=== PATIENT | female | born 1960 | race Caucasian/White ===

== ENCOUNTER 2017-05-28 23:58 | Emergency (ER) | payer OTHER ==
[~2017-05-28] VITALS: Ht 149.9 cm; Wt 67.5 kg
[2017-05-29 00:02] VITALS: Ht 149.9 cm; Wt 67.5 kg
[2017-05-29] MEDS ORDERED: METHYLPREDNISOLONE 125 MG INJ IV STA (01:01)
[2017-05-29] MEDS ORDERED: DIPHENHYDRAMINE 50 MG INJ IV STA (01:01)
[2017-05-29] MEDS ORDERED: FAMOTIDINE 20 MG INJ IV STA (01:01)
[2017-05-29] MEDS ORDERED: PRED20TA PO (02:01)
--- NOTE | 2017-05-29 02:08 | ERD ---
ER Documentation Chief Complaint Date/Time DATE: 05/29/17 TIME: 02:05 Chief Complaint Facial swelling started at 2230. BP elevated took lisinopril in AM HPI 56-year-old female history of hypertension taking lisinopril who presents to the emergency room with facial and upper lip swelling. The patient states that yesterday around 10 PM she noted upper lip swelling left greater than right. She states the swelling has improved and is going down. She is concerned because of the persistence and presents to the emergency room. She denies any new medications or detergents, no urticarial rash or difficulty breathing or swallowing. ROS All systems reviewed and are negative except as per history of present illness. Medications Home Meds Active Scripts Prednisone* (Prednisone*) 20 Mg Tab, 40 MG PO DAILY for 4 Days, TAB Prov:JM BOWEN MD 05/29/17 Allergies Allergies: Coded Allergies: No Known Allergy (Unverified , 05/29/17) FmHx Family History: No diabetes Physical Exam Vitals Vital Signs Date Time Temp Pulse Resp B/P Pulse Ox O2 Delivery O2 Flow Rate FiO2 05/29/17 00:02 97.9 79 20 199/89 98 Physical Exam General: Well developed, well nourished, no acute distress Head: Normocephalic, atraumatic Eyes: Pupils equally reactive, EOM intact ENT: Moist mucous membranes, very slight swelling to the upper lip left greater than right, posterior pharynx with uvula midline, no edema Neck: Supple, no lymphadenopathy Respiratory: Lungs clear bilaterally, no distress Cardiovascular: RRR, no murmurs, rubs, or gallops Abdominal: Soft, non-tender, non-distended, no peritoneal signs : Deferred MSK: No edema, no unilateral swelling, 5/5 strength Neurologic: Alert and oriented, moving all extremities, normal speech, no focal weakness, no cerebellar signs Skin: No rash, no urticaria Psych: Normal mood Results 24 hrs Current Medications Medications (Trade) Dose Ordered Sig/Zeenat Route PRN Reason Start Time Stop Time Status Last Admin Dose Admin Diphenhydramine HCl (Benadryl) 50 mg ONCE STAT IV 05/29/17 01:01 05/29/17 01:03 DC Famotidine (Pepcid Iv) 20 mg ONCE STAT IV 05/29/17 01:01 05/29/17 01:03 DC Methylprednisolone Sodium Succinate (Solu-Medrol) 125 mg ONCE STAT IV 05/29/17 01:01 05/29/17 01:03 DC Procedures/MDM MEDICAL DECISION MAKING: The patient has signs and symptoms consistent with mild angioedema likely secondary to lisinopril. The patient has no signs or symptoms concerning for impending airway failure or respiratory distress. Her symptoms started yesterday. She continues to be well-appearing and has improving symptoms. The patient has no signs of progression of disease process and does not require prolonged observation in the emergency department. ER COURSE: The patient was given Benadryl, Pepcid, Solu-Medrol. She was observed for greater than 2 hours and continues to be well-appearing with no progression of swelling and mild improvement. At this time I feel the patient can be safely discharged home. She was strongly advised to discontinue lisinopril and follow- up with primary care physician for substituting blood pressure medication. She was advised to return for any worsening symptoms including tongue swelling or difficulty breathing. Patient's blood pressure was elevated (>120/80) but appears stable without evidence of hypertensive emergency or urgency. The patient was counseled about the risks of hypertension and urged to pursue outpatient monitoring and therapy within a week with their primary care physician. I kept the patient and/or family informed of laboratory and diagnostic imaging results throughout the emergency room course. DISPOSITION PLAN: We discussed follow up with the patient's primary care doctor within 24 to 48 hours as needed. We also discussed return to the emergency room for worsening symptoms or worsening condition. Outpatient referral: [None required] Discharge Medications: Prednisone Departure Diagnosis: Primary Impression: Angioedema Encounter type: initial encounter Qualified Code: T78.3XXA - Angioedema, initial encounter Condition: Stable Patient Instructions: Angioedema Referrals: COMM[facility]ITY CLIN[facility] YOU HAVE RECEIVED A MEDICAL SCREENING EXAM AND THE RESULTS INDICATE THAT YOU DO NOT HAVE A CONDITION THAT REQUIRES URGENT TREATMENT IN THE EMERGENCY DEPARTMENT. FURTHER EVALUATION AND TREATMENT OF YOUR CONDITION CAN WAIT UNTIL YOU ARE SEEN IN YOUR DOCTORS OFFICE WITHIN THE NEXT 1-2 DAYS. IT IS YOUR RESPONSIBILITY TO MAKE AN APPOINTMENT FOR FOLOW-UP CARE. IF YOU HAVE A PRIMARY DOCTOR --you should call your primary doctor and schedule an appointment IF YOU DO NOT HAVE A PRIMARY DOCTOR YOU CAN CALL OUR PHYSICIAN REFERRAL HOTLINE AT IF YOU CAN NOT AFFORD TO SEE A PHYSICIAN YOU CAN CHOSE FROM THE FOLLOWING [facility] [address] [facility] [address] [place] [facility] [address] [facility] [address] [facility] [address] [facility] [address] [facility]. [facility] YOU HAVE RECEIVED A MEDICAL SCREENING EXAM AND THE RESULTS INDICATE THAT YOU DO NOT HAVE A CONDITION THAT REQUIRES URGENT TREATMENT IN THE EMERGENCY DEPARTMENT. FURTHER EVALUATION AND TREATMENT OF YOUR CONDITION CAN WAIT UNTIL YOU ARE SEEN IN YOUR DOCTORS OFFICE WITHIN THE NEXT 1-2 DAYS. IT IS YOUR RESPONSIBILITY TO MAKE AN APPOINTMENT FOR FOLOW-UP CARE. IF YOU HAVE A PRIMARY DOCTOR --you should call your primary doctor and schedule and appointment IF YOU DO NOT HAVE A PRIMARY DOCTOR YOU CAN CALL OUR PHYSICIAN REFERRAL HOTLINE AT . IF YOU CAN NOT AFFORD TO SEE A PHYSICIAN YOU CAN CHOSE FROM THE FOLLOWING [facility] INSTITUTIONS: [facility] [address] [place] [address] [facility] [address] [place] [address] [facility] [address] [place] [address] Additional Instructions: You must stop taking her lisinopril and follow-up with her primary care physician to find a substituting medication. Return for any difficulty breathing or worsening symptoms. JM BOWEN MD May 29, 2017 02:08
[2017-05-29] MEDS ORDERED: GLIP-95 PO (02:28)
[2017-05-29] MEDS ORDERED: MTF1000T PO (02:28)
[2017-05-29] MEDS ORDERED: LISI-313 PO (02:28)
[2017-05-29 03:05] VITALS: BP 176/94; PULSE 74; RESP 17
== END 2017-05-29 03:05 | disposition home or self-care (01) ==
LOC: E/R 23:58
DX: T78.3XXA Angioneurotic edema, initial encounter (principal)
CPT/HCPCS: 96374; 96375; J1200; J2930; Z7502; Z7610